=== PATIENT | female | born 1945 | race Caucasian/White ===

== ENCOUNTER → 2018-06-04 | Outpatient (CLI) | payer OTHER | LOC: FIMAGING 13:12 | PROVIDERS: ATTEND Internal Medicine | DX: I80.3 Phlebitis and thrombophlebitis of lower extremities, unspecified (principal) ==

== ENCOUNTER → 2018-06-12 | Outpatient (CLI) | payer OTHER | LOC: FIMAGING 14:30 | PROVIDERS: ATTEND Internal Medicine | DX: Z12.31 Encounter for screening mammogram for malignant neoplasm of breast (principal) ==

== ENCOUNTER 2018-06-19 17:20 | Inpatient (IN) | payer OTHER ==
[2018-06-19] MEDS ORDERED: NS 1,000 ML IV ONE (17:48)
[2018-06-19] MEDS ORDERED: fentaNYL 100 MCG/2 ML INJ IVP PRN (17:52)
[2018-06-19] MEDS ORDERED: GLUCAGON HCL 1 MG VIAL IVP PRN (17:52)
[2018-06-19] MEDS ORDERED: MEPERIDINE 25 MG/ML SYR IVP PRN (17:52)
[2018-06-19] MEDS ORDERED: NALOXONE HCL 0.4 MG/ML INJ IVP PRN (17:52)
[2018-06-19] MEDS ORDERED: PROTAMINE SULFATE 50 MG/5 ML VIAL IVP PRN (17:52)
[2018-06-19] MEDS ORDERED: FLUMAZENIL 0.5 MG/5 ML MDV IVP PRN (17:52)
[2018-06-19] MEDS ORDERED: HEPARIN 10,000 UNIT/10 ML MDV (1,000 UNIT/ML) IVP PRN (17:52)
[2018-06-19] MEDS ORDERED: MIDAZOLAM 2 MG/2 ML VIAL IVP PRN (17:52)
[2018-06-19] MEDS ORDERED: ALTEPLASE 2 MG VIAL IVP PRN (17:52)
--- NOTE | 2018-06-19 17:52 | EDPHY ---
H & P Stated Complaint: dx with DVT Time Seen by Provider: 06/19/18 17:42 HPI/ROS: CHIEF COMPLAINT: Left leg DVT HISTORY OF PRESENT ILLNESS: Patient is a 73-year-old healthy female who noticed some leg pain and swelling over the last 3-[address] Hobbs ordered an ultrasound. She had an ultrasound done today in the radiology department and was found to have extensive DVT from the IVC to the calf. They sent her here for to the ER for lab work and then are planning to take her to the IR suite for catheter directed thrombolysis. She denies chest pain or shortness of breath. No fever or recent illness. No history of DVTs. Nonsmoker. No recent travel or trauma. Severity: Moderate Modifying factors: Increased pain with ambulation REVIEW OF SYSTEMS: Constitutional: denies: chills, fever, recent illness, recent injury EENTM: denies: blurred vision, double vision, nose congestion Respiratory: denies: cough, shortness of breath Cardiac: denies: chest pain, irregular heart rate, lightheadedness, palpitations Gastrointestinal/Abdominal: denies: abdominal pain, diarrhea, nausea, vomiting, blood streaked stools Genitourinary: denies: dysuria, frequency, hematuria, pain Musculoskeletal: See HPI Skin: denies: lesions, rash, jaundice, bruising Neurological: denies: headache, numbness, paresthesia, tingling, dizziness, weakness Hematologic/Lymphatic: denies: blood clots, easy bleeding, easy bruising Immunologic/allergic: denies: HIV/AIDS, transplant 10 systems reviewed and negative except as noted EXAM: GENERAL: Well-appearing, well-nourished and in no acute distress. HEAD: Atraumatic, normocephalic. EYES: Pupils equal round and reactive to light, extraocular movements intact, sclera anicteric, conjunctiva are normal. ENT: TMs normal, nares patent, oropharynx clear without exudates. Moist mucous membranes. NECK: Normal range of motion, supple without lymphadenopathy or JVD. LUNGS: Breath sounds clear to auscultation bilaterally and equal. No wheezes rales or rhonchi. HEART: Regular rate and rhythm without murmurs, rubs or gallops. ABDOMEN: Soft, nontender, normoactive bowel sounds. No guarding, no rebound. No masses appreciated. BACK: No CVA tenderness, no spinal tenderness, step-offs or deformities EXTREMITIES: The left leg pain, slightly swollen, normal pulses and sensation. NEUROLOGICAL: Cranial nerves II through XII grossly intact. Normal speech, normal gait. 5/5 strength, normal movement in all extremities, normal sensation , normal reflexes PSYCH: Normal mood, normal affect. SKIN: Warm, dry, normal turgor, no visible rashes or lesions. Source: Patient Exam Limitations: No limitations - Medical/Surgical History Hx Asthma: No Hx Chronic Respiratory Disease: No Hx Diabetes: No Hx Cardiac Disease: No Hx Renal Disease: No Hx Cirrhosis: No Hx Alcoholism: No Hx HIV/AIDS: No Hx Splenectomy or Spleen Trauma: No Other PMH: hypercholest. - Family History Significant Family History: No pertinent family hx - Social History Smoking Status: Never smoked Alcohol Use: Sober Drug Use: None Constitutional: Initial Vital Signs Temperature (C) 36.7 C 06/19/18 17:23 Heart Rate 87 06/19/18 17:23 Respiratory Rate 18 06/19/18 17:23 Blood Pressure 159/93 H 06/19/18 17:23 O2 Sat (%) 97 06/19/18 17:23 O2 Delivery Mode Room Air Allergies/Adverse Reactions: No Known Allergies Allergy (Unverified 06/19/18 17:57) Home Medications: Medication Instructions Recorded Atorvastatin Calcium [Atorvastatin 10 mg PO DAILY 06/19/18 Calcium] Latanoprost [Latanoprost] 1 drop EACHEYE HS 06/19/18 Timolol Maleate [Timoptic] 1 drop RTEYE DAILY 06/19/18 Medical Decision Making - Diagnostics Imaging: Discussed imaging studies w/ yardage caller Radiologist ED Course/Re-evaluation: The patient is currently well-appearing with stable vital signs. Intervention interventional Radiology is planning to take her. We are obtaining lab work. She has no symptoms of PE. I discussed the case with Dr. Bautista who will admit to the ICU. Differential Diagnosis: Partial list of the Differential diagnosis considered include but were not limited to; DVT, edema, and although unlikely based on the history and physical exam, I also considered renal insufficiency, liver disease, ischemia, infection. Other Provider: Critical care time spent by me, Dr. Ribera exclusive with this patient was 35 minutes, exclusive of the PA time exclusive of procedures. The organ system that was at risk was vascular and I gave lab work, diagnostics, consultation and admission to prevent worsening of the patient's condition - Data Points Laboratory Results: Laboratory Results 06/19/18 17:40 06/19/18 17:40 Medications Given: Atorvastatin Calcium (Lipitor) 10 mg PO DAILY [facility] Stop: 12/17/18 08:59 Last Admin: 06/20/18 08:52 Dose: 10 mg Hydromorphone HCl (Dilaudid) 0.2 - 0.4 mg IVP Q2HRS PRN PRN Reason: Pain, Severe Stop: 06/29/18 21:16 Last Admin: 06/20/18 14:38 Dose: 0.2 mg Alteplase, Recombinant 5 mg/ (Sodium Chloride) 100 mls @ 0 mls/hr IV CONT DEE; Per Protocol PRN Reason: Protocol Stop: 12/16/18 18:59 Last Admin: 06/20/18 14:39 Dose: 100 mls Heparin Sodium (Porcine) (Heparin 50 Units/Ml (Premix)) 500 mls @ 0 mls/hr IV CONT DEE; As Directed PRN Reason: Protocol Stop: 12/16/18 18:59 Last Admin: 06/19/18 19:27 Dose: 500 mls Ondansetron HCl (Zofran) 4 mg IVP Q4HRS PRN PRN Reason: Nausea/Vomiting, Can't Take PO Stop: 12/16/18 17:55 Last Admin: 06/20/18 12:47 Dose: 4 mg Ondansetron HCl (Zofran Odt) 4 mg PO Q4HRS PRN PRN Reason: Nausea/Vomiting, Use 1st Stop: 12/16/18 17:55 Last Admin: 06/19/18 20:59 Dose: 4 mg Oxycodone HCl (Oxycodone Ir) 5 - 10 mg PO Q3HRS PRN PRN Reason: Pain, Severe Able to Take PO Stop: 06/29/18 17:55 Last Admin: 06/20/18 12:19 Dose: 10 mg Pantoprazole Sodium (Protonix) 40 mg IVP Q6H DEE Stop: 12/17/18 14:59 Last Admin: 06/20/18 16:15 Dose: 40 mg Timolol Maleate (Timoptic 0.5%) 1 drops RTEYE DAILY [facility] Stop: 12/17/18 08:59 Last Admin: 06/20/18 08:53 Dose: Not Given Discontinued Medications Fentanyl (Sublimaze) 0 mcg IVP ONCALL PRN PRN Reason: Per provider during procedure Stop: 06/19/18 18:53 Last Admin: 06/19/18 19:17 Dose: 150 mcg Sodium Chloride (Ns) 1,000 mls @ 0 mls/hr IV ONCE ONE; Wide Open PRN Reason: Protocol Stop: 06/19/18 17:49 Last Admin: 06/19/18 18:51 Dose: 1,000 mls Midazolam HCl (Versed) 0 mg IVP ONCALL PRN PRN Reason: Per provider during procedure Stop: 06/19/18 18:53 Last Admin: 06/19/18 19:16 Dose: 1 mg Departure - Departure Disposition: [facility] Acute Clinical Impression: Left leg DVT Qualifiers: Affected thrombotic vein of extremity: unspecified lower extremity proximal vein Chronicity: acute Qualified Code(s): I82.4Y2 - Acute embolism and thrombosis of unspecified deep veins of left proximal lower extremity Condition: Critical
[2018-06-19] MEDS ORDERED: ONDANSETRON DISINTEGRATING 4 MG TAB PO PRN (17:56)
[2018-06-19 18:04] LABS: PLATELET COUNT 196 10^3/uL (150-400)
[2018-06-19 18:13] LABS: INR 1.14 (0.83-1.16); PROTIME(PATIENT) 14.8 SEC (12.0-15.0)
--- NOTE | 2018-06-19 18:24 | GHP ---
DATE OF ADMISSION: 06/19/2018 CHIEF COMPLAINT: Left leg swelling. HISTORY OF PRESENT ILLNESS: This is a 73-year-old healthy female who presents with left leg swelling . She has had a heaviness in her leg for a week or two. It has not really been painful. She has se nsation intact in her foot and leg. The swelling got significantly worse today. She saw her PCP who sent her into the hospital for an ultrasound of her leg. Ultrasound showed an extensive DVT from th e lower IVC to her calf. She has never had a blood clot before. No recent travel. She is up to donita e on her cancer screening. Her mother did have a blood clot when she was a teenager. She is not on any hormonal replacement. Notably, she had an ultrasound at the beginning of this month, which showed no DVT. It did show a guerrero perficial thrombophlebitis in the left calf lesser saphenous vein. She has no chest pain or shortness of breath. PAST MEDICAL/SURGICAL HISTORY: 1. Hyperlipidemia. 2. Glaucoma. 3. Cholecystectomy. MEDICATIONS: Please see medication reconciliation. ALLERGIES: No known drug allergies. FAMILY HISTORY: As above. SOCIAL HISTORY: She drinks alcohol. She does not smoke. REVIEW OF SYSTEMS: A 10-point review of systems is conducted and is negative, except per HPI transfe r. PHYSICAL EXAM: VITAL SIGNS: Blood pressure 159/93, heart rate 87, respiration 18, saturating 97% on room air, temperature 36.7. GENERAL: The patient is a pleasant female who is resting, who appears somewhat anxious, otherwise in no acute distress. HEENT: Shows her to be normocephalic, atraumatic. CARDIOVASCULAR: Regular rate and rhythm. No murmurs, rubs, or gallops. PULMONARY: Lungs clear t o auscultation bilaterally. She is not in any respiratory distress. ABDOMEN: Soft, nontender, nond istended. SKIN: No rash. : No Huff. NEUROLOGIC: Exam shows her to be alert and oriented x3. She is moving all extremities. PSYCHIATRIC: Exam shows normal mood and affect. EXTREMITIES: Show s her left lower extremity significantly edematous and mildly erythematous. Her left foot is warm. She has feeling and dorsalis pedis pulses palpated. LABORATORY: Labs have been ordered and are currently pending at this time. DATA: 1. Discussed with Dr. Ribera, will admit to the ICU for tPA thrombolysis. 2. I reviewed her chart, including her imaging studies as detailed in the HPI. IMPRESSION/PLAN: 1. Extensive left lower extremity deep venous thrombosis: Plan is for Interventional Radiology luna ulloa. Beyond that, she will need indefinite anticoagulation. She has no real risk facto rs that I can tell for a significant deep venous thrombosis. It sounds as though it extends into the inferior vena cava making May-Thurner syndrome less likely. This is a high-risk diagnosis requiring close monitoring. 2. Hyperlipidemia: Lipitor. /[id number]/MODL
--- NOTE | 2018-06-19 18:49 | PDRADPRE ---
Radiology History & Physical Indication for procedure: thromboembolism (LLE Massive iliofemoral DVT), other Home medications: Atorvastatin Calcium [Atorvastatin Calcium] 10 mg PO DAILY 06/19/18 [Last Taken 06/19/18] Latanoprost [Latanoprost] 1 drop EACHEYE HS 06/19/18 [Last Taken 06/18/18] Timolol Maleate [Timoptic] 1 drop RTEYE DAILY 06/19/18 [Last Taken 06/18/18] Allergies/Adverse Reactions: No Known Allergies Allergy (Unverified 06/19/18 17:57) Mental status: A&Ox3 Heart exam: regular rate and rhythm Lungs exam: clear to auscultation Mallampati Score: Class 2
--- NOTE | 2018-06-19 18:49 | PDPROPOC ---
Sedation Plan of Care Sedation Plan of Care: vital signs stable, mental status noted, patient educated of risks, benefits, alternatives, patient can tolerate sedation ASA Classification: ASA 3 Planned drugs: fentanyl, midazolam Mallampati Score: Class 2 Mallampati Reference Image: Patient passed 3-3-2 rule?: Yes
[2018-06-19] MEDS ORDERED: HEPARIN/DEXTROSE 500 ML IV SCH (19:00)
[2018-06-19] MEDS: ALTEPLASE 5 MG in NS 100 ML IV SCH ×2 (19:17→22:34)
[2018-06-19] MEDS ORDERED: IOPAMIDOL (ISOVUE-300) 100 ML BTL ONE (19:45)
[2018-06-19] MEDS: oxyCODONE IR 5 MG TAB PO PRN ×2 (20:59→22:33)
[2018-06-19] MEDS ORDERED: HYDROmorphONE/DILAUDID 1 MG/ML INJ IVP PRN (21:17)
[2018-06-20] MEDS: oxyCODONE IR 5 MG TAB PO PRN ×4 (01:09→20:59)
[2018-06-20] MEDS: ALTEPLASE 5 MG in NS 100 ML IV SCH ×3 (04:24→14:39)
--- NOTE | 2018-06-20 06:30 | PDMN ---
Medical Necessity Medical necessity: Pt meets inpt criteria per MD order and MCG M-350, Deep Venous Thrombosis of Lower Extremities. 73 y/o presented w/L leg swelling, admitted w/extensive left lower extremity DVT, confirmed on ultrasound, requiring interventional radiology thrombolysis followed by ICU care, IV Alteplase, IV Heparin. Anticipate>2MN for med nec ongoing monitoring/treatment for high risk diagnosis.
[2018-06-20 06:40] LABS: PLATELET COUNT 135 10^3/uL (150-400)
[2018-06-20] MEDS: ATORVASTATIN CALCIUM 10 MG TAB PO SCH (08:52)
[2018-06-20] MEDS: TIMOLOL 0.5% 15 ML OPHT.BTL RTEYE SCH (08:53)
[2018-06-20] MEDS: ONDANSETRON 4 MG/2 ML VIAL IVP PRN (12:47)
--- NOTE | 2018-06-20 13:33 | GCON ---
WATER RESOURCE CONSULTANT CONSULTATION REASON FOR ADMISSION: Extensive DVT. HISTORY OF PRESENT ILLNESS: The patient is an extremely pleasant 73-year-old white female with a pas t medical history including glaucoma and hyperlipidemia. She was seen by her primary care physician, complaining of leg swelling. She was then sent to the hospital for an ultrasound, which shows an ex tensive DVT from the lower IVC to her calf. She was subsequently admitted, underwent localized tPA v ia EKOS through Interventional Radiology. She has never had a blood clot prior. Has had no recent t ravel. She is currently resting comfortably. REVIEW OF SYSTEMS: Ten-point review of systems was performed and is negative, except for what is lis chrissy in HPI. PAST MEDICAL HISTORY: Significant for hyperlipidemia and glaucoma. ALLERGIES: No known allergies to medications. SOCIAL HISTORY: No history of tobacco use. Infrequent alcohol. She is , has excellent famil y support. FAMILY HISTORY: Noncontributory. PHYSICAL EXAM: VITAL SIGNS: Blood pressure 108/60, pulse 81, respirations 16, temperature 36.7, oxy gen saturation 100% on 2 L. GENERAL: She is a well-developed, well-nourished, elderly white female who is resting comfortably, in no acute distress. HEENT: Eyes are PERRL, EOMI. Throat shows no calixto thema or tonsillar hypertrophy. NECK: Supple. No cervical adenopathy. HEART: Regular rate and rhy thm, without murmurs, rubs, or gallops. LUNGS: Clear to auscultation. No wheeze or rhonchi. ABDOM EN: Soft, nontender. Bowel sounds are present in all 4 quadrants. EXTREMITIES: No clubbing, cyano sis, or edema. LABORATORY DATA: White count is 9.3, hemoglobin 11, hematocrit 34. Platelet count is 135. MCV is e levated at 101. Sodium 137, potassium 4.0, chloride 107, CO2 27, BUN 16, creatinine 0.6. Glucose is 92. IMPRESSION: 1. Extensive deep vein thrombosis. 2. Status post localized tPA per Interventional Radiology. Patient is currently on EKOS. 3. History of hyperlipidemia. 4. History of glaucoma. RECOMMENDATIONS: 1. Continue EKOS as you are doing. 2. Adequate pain control. 3. Will discuss anticoagulation options upon discharge. 4. Continue bedrest for now. /[id number]/MODL
[2018-06-20] MEDS ORDERED: IOPAMIDOL (ISOVUE-300) 100 ML BTL ONE ×2 (15:30→18:10)
[2018-06-20] MEDS: PANTOPRAZOLE SODIUM 40 MG VIAL IVP SCH ×3 (15:40→21:00)
--- NOTE | 2018-06-20 16:48 | HOSPPROG ---
Hospitalist Progress Note Assessment/Plan: Assessment: 73-year-old female presents with massive left lower extremity DVT Plan: 1. DVT. Present on admission, extensive clot extending from the IVC down to the left popliteal on ultrasound, of uncertain etiology -status post EKOS by Interventional Radiology, patient currently has tPA catheter in place and she requires follow-up venogram to determine resolution -unclear whether this is secondary to a superficial thrombophlebitis which developed approximately 2 weeks ago, and will recommend outpatient updates on screening from underlying malignancy -counseled patient her that we will discuss the numerous options of outpatient anticoagulation therapy beginning tomorrow when she is no longer on tPA -renal function currently normal, no clinical signs of pulmonary embolism -counseled the patient her that we will also discuss signs of bleeding to be aware of in the outpatient setting -continue IV normal saline while patient is NPO Diet. NPO with IV fluids prior to procedure Prophylaxis. Currently on TPN Code. Full Disposition. Anticipated discharge is 06/21, pending resolution of above. Subjective: Patient with back discomfort, no significant left lower extremity pain, no chest pain or shortness of breath Objective: Vital Signs Temp Pulse Resp BP Pulse Ox 36.8 C 75 17 115/72 100 06/20/18 16:00 06/20/18 16:00 06/20/18 16:00 06/20/18 16:00 06/20/18 16:00 Laboratory Results 06/20/18 06:22 06/20/18 06:22 06/19/18 06/20/18 06/21/18 05:59 05:59 05:59 Intake Total 1173 Output Total 200 225 Balance 973 -225 PT 14.8 SEC (12.0-15.0) 06/19/18 17:40 INR 1.14 (0.83-1.16) 06/19/18 17:40 - Time Spent With Patient Time Spent with Patient: greater than 35 minutes Time Spent with Patient: Greater than 35 minutes spent on this patients care, greater than 50% of time spent counseling, educating, and coordinating care regarding the above mentioned plan. - Pending Discharge Pending Discharge Within 24 Hours: Yes Pending Discharge Date: 06/21/18 Pending Discharge Time: 11:00 - Physical Exam Constitutional: no apparent distress, appears nourished, not in pain, uncomfortable Cardiovascular: regular rate and rhythym, no murmur, rub, or gallop, edema (2 + left upper extremity, asymmetric) Respiratory: no respiratory distress, no rales or rhonchi, clear to auscultation Gastrointestinal: normoactive bowel sounds, soft, non-tender abdomen, no palpable masses, No distension Skin: No erythema Neurologic: AAOx3, sensation intact bilaterally Psychiatric: interacting appropriately, not anxious, not encephalopathic, thought process linear ICD10 Worksheet Patient Problems: Problems Problem Status Onset Left leg DVT Acute
[2018-06-20] MEDS ORDERED: fentaNYL 100 MCG/2 ML INJ IVP PRN (17:20)
[2018-06-20] MEDS ORDERED: MIDAZOLAM 2 MG/2 ML VIAL IVP PRN (17:20)
[2018-06-20] MEDS ORDERED: NALOXONE HCL 0.4 MG/ML INJ IVP PRN (17:20)
[2018-06-20] MEDS ORDERED: FLUMAZENIL 0.5 MG/5 ML MDV IVP PRN (17:20)
[2018-06-20] MEDS ORDERED: MEPERIDINE 25 MG/ML SYR IVP PRN (17:20)
[2018-06-20] MEDS ORDERED: fentaNYL 100 MCG/2 ML INJ ONE (17:23)
[2018-06-20] MEDS ORDERED: MIDAZOLAM 2 MG/2 ML VIAL ONE (17:23)
[2018-06-20] MEDS ORDERED: NS 1,000 ML IV SCH (17:30)
[2018-06-20] MEDS ORDERED: LORazepam 1 MG TAB PO PRN (17:33)
[2018-06-20] MEDS ORDERED: LORazepam 2 MG/ML INJ IVP PRN (17:33)
[2018-06-20] MEDS ORDERED: LIDOCAINE 1% 300 MG/30 ML SDV ONE (18:11)
--- NOTE | 2018-06-20 18:40 | PDRADPN ---
Radiology Procedure Note Date of Procedure: 06/20/18 Radiologist: Ruth Long Anesthesia: IV Sedation Pre-op Diagnosis: LLE CLOT Post-op Diagnosis: SAME Indication: TPA LYSIS Procedure: VENOGRAM, STENT PLACEMENT Finding(s): COMPLETE CLOT LYSIS; MAY-THURNER SYNDROME. WIDE OPEN WITH STENT PLACEMENT. Inf/Abcess present in the surg proc area at time of surgery?: No
[2018-06-20] MEDS: ACETAMINOPHEN 325 MG TAB PO PRN (20:59)
[2018-06-20] MEDS: APIXABAN 5 MG TAB PO SCH (20:59)
[2018-06-20] MEDS ORDERED: LATANOPROST 0.005% 2.5 ML OPHT DROPS EACHEYE SCH (21:00)
[2018-06-20] MEDS ORDERED: RED WINE 120 ML BOTTLE PO SCH (21:30)
[2018-06-21] MEDS: PANTOPRAZOLE SODIUM 40 MG VIAL IVP SCH (03:32)
[2018-06-21] MEDS: ACETAMINOPHEN 325 MG TAB PO PRN ×3 (05:44→16:44)
[2018-06-21] MEDS: PANTOPRAZOLE SODIUM 40 MG TAB PO SCH ×2 (05:44→09:04)
[2018-06-21] MEDS: ONDANSETRON 4 MG/2 ML VIAL IVP PRN (08:06)
[2018-06-21] MEDS ORDERED: THIAMINE HCL 500 MG in NS 100 ML IV SCH (09:00)
[2018-06-21] MEDS: ATORVASTATIN CALCIUM 10 MG TAB PO SCH (09:04)
[2018-06-21] MEDS: APIXABAN 5 MG TAB PO SCH (09:04)
[2018-06-21] MEDS: TIMOLOL 0.5% 15 ML OPHT.BTL RTEYE SCH (09:06)
--- NOTE | 2018-06-21 09:11 | PDINTPN ---
Military Nurse Progress Note Assessment/Plan: Assessment/plan: * DVT-status post localized tPA and stenting * Hyperlipidemia * Glaucoma * Disposition-likely discharge home today Subjective: Resting comfortably. No current complaints. Objective: Vital Signs Temp Pulse Resp BP Pulse Ox 36.6 C 70 17 107/58 L 90 L 06/21/18 04:00 06/21/18 06:00 06/21/18 06:00 06/21/18 06:00 06/21/18 06:00 Laboratory Results 06/20/18 06:22 06/20/18 06:22 06/20/18 06/21/18 06/22/18 05:59 05:59 05:59 Intake Total 1173 1129 Output Total 200 800 50 Balance 973 329 -50 PT 14.8 SEC (12.0-15.0) 06/19/18 17:40 INR 1.14 (0.83-1.16) 06/19/18 17:40 - Time Spent With Patient Time Spent With Patient: 25 min of time spent with patient, over 1/2 involved with coordination of care or counseling. Case discussed with nursing Physical Exam - Physical Exam General Appearance: alert, no apparent distress EENT: PERRL/EOMI, normal ENT inspection Neck: non-tender, full range of motion Respiratory: chest non-tender, lungs clear, normal breath sounds Cardiac/Chest: normal peripheral pulses, regular rate, rhythm Peripheral Pulses: 2+: carotid (R), carotid (L), femoral (R), femoral (L), dorsalis-pedis (R), dorsalis-pedis (L) Abdomen: normal bowel sounds, non-tender, soft Pelvic Exam: deferred Rectal: deferred Skin: normal color, warm/dry Extremities: normal range of motion, non-tender, normal inspection, normal capillary refill Neuro/Psych: alert, normal mood/affect, oriented x 3 ICD10 Worksheet Patient Problems: Problems Problem Status Onset Left leg DVT Acute
[2018-06-21 10:48] LABS: PLATELET COUNT 142 10^3/uL (150-400)
[2018-06-21 12:20] VITALS: BP 98/79
--- NOTE | 2018-06-21 16:07 | PDDCSUM ---
Discharge Summary Discharge Summary: DISCHARGE SUMMARY FOLLOW-UP ITEMS: 1. Reassess nausea with primary care provider 2. Reassess ongoing need for proton pump inhibitor therapy DATE OF ADMISSION: 06/19/2018 DATE OF DISCHARGE: 06/21/2018 DISCHARGE DIAGNOSES: 1. 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 Acute nausea and vomiting CONSULTATIONS: Interventional Radiology, Pulmonary Critical Care PROCEDURES / IMAGING: EKOS LLE with tPA Venogram demonstrating complete resolution of clot, stent placed CHIEF COMPLAINT: Acute left lower extremity pain and swelling SUBJECTIVE: Patient is feeling well at time discharge, her nausea has abated, she has yet to move her bowels, left lower extremity pain has subsided PHYSICAL EXAM ON DISCHARGE: Systolic blood pressures 90-110, heart rate 60-70, satting on room air, afebrile overnight, alert awake oriented x3, pain level 0/10, left lower extremity has trace soft tissue edema, circular ecchymotic tender non indurated area on the left saavedra with central fluctuant papule approximately half a cm across, no erythema in the left calf catheter site, bowel sounds are active, abdomen is soft nontender nondistended, no masses palpated, right upper quadrant scar, heart rhythm is regular, not tachycardic LABS ON DISCHARGE: White blood cell count 12,900, hemoglobin 11.9, platelets a 142,000, ALT 70, rest of liver panel unremarkable, creatinine 0.5, potassium 2.9 HOSPITAL COURSE BY PROBLEM: The patient presented with symptomatic, acute left lower extremity deep venous thrombosis characterized as massive based on ultrasound from the left popliteal up to the inferior vena cava, she was an appropriate candidate for catheter directed tPA, and underwent this by Interventional Radiology. 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 She was subsequently initiated on systemic anticoagulation with therapeutic Eliquis, and will be continued on this indefinitely, most likely. Educated the patient regarding bleeding risks associated with anticoagulation. The patient did experience some acute, intermittent nausea and vomiting following her procedures, and I suspect this is most likely secondary to side effects of sedation as well as constipation. She responded favorably to Zofran and had active bowel sounds at time of discharge, with instructions to utilize [id number] laxatives at home she does not have a bowel movement by tomorrow. She also have some as needed Zofran prescribed. During her initial episode of emesis, she did have a small amount of ailin blood , and this may be secondary to either Lakia-Grimes tear or small area of bleed in the setting of tPA. At the time of her bleeding episode, we did prescribe IV pantoprazole, and I do recommend that she continue on once daily dosing for the next 30 days to prevent any recurrent upper GI bleed. At that time it may be prudent to discontinue proton pump inhibitor and then continue on H2 elisha. DISCHARGE MEDICATIONS: Please see official discharge medication reconciliation sheet in chart , Vivint starter pack, promotional cards included, Zofran as needed, pantoprazole 40 mg daily times 30 days DISCHARGE INSTRUCTIONS: Please follow up with her primary care provider next week. TIME SPENT: Greater than 30 minutes were spent on direct patient care, as well as discharge planning and preparation.
[2018-06-23] MEDS ORDERED: THIAMINE HCL 100 MG TAB PO SCH (17:33)
== END 2018-06-21 17:44 | disposition home or self-care (01) | DRG 253 ==
LOC: OBSVTOIN 17:58 → F2N 19:58 → F2W 06-21 12:05
PROVIDERS: ADMIT Student in an Organized Health Care Education/Training Program; ATTEND Internal Medicine
DX: I82.412 Acute embolism and thrombosis of left femoral vein (principal); I82.422 Acute embolism and thrombosis of left iliac vein; I87.1 Compression of vein; E78.5 Hyperlipidemia, unspecified; H40.9 Unspecified glaucoma; R11.2 Nausea with vomiting, unspecified
CPT/HCPCS: 97161-GP; C1725; C1757; C1769; C1876; C1894; G8978-GP-CH; G8979-GP-CH; G8980-GP-CH; J1170; J1644; J2250; J2310; J2405; J2997; J3010; Q9967

== ENCOUNTER → 2018-08-12 | Outpatient (CLI) | payer OTHER | LOC: FIMAGING 15:41 | PROVIDERS: ATTEND Registered Nurse | DX: I87.1 Compression of vein (principal) ==